=== PATIENT | male | born 1985 | race Caucasian/White ===

== ENCOUNTER → 2024-12-27 08:51 | Outpatient (CLI) | payer OTHER, SELFPAY ==
--- NOTE | 2024-12-27 08:53 | DI.MRI.S_ITS ---
PROCEDURE: MR ANKLE RT WO CON INDICATIONS: INSTABILITY AND PAIN RT ANKLE AND JOINT TECHNIQUE: Noncontrast sagittal T1 spin echo and T2 fast spin echo with fat saturation, axial proton density fast spin echo and T2 fast spin echo with fat saturation, coronal T1 spin echo and T2 fast spin echo with fat saturation through the ankle/hindfoot. COMPARISON: None. FINDINGS: Image quality: Excellent Tendons: Trace tenosynovitis of the posterior tibialis. The flexor digitorum longus is unremarkable. Mild tenosynovitis of the flexor hallucis longus. The extensor tendons are unremarkable. Longitudinal split tear of the peroneal brevis. Mild tendinosis of the peroneal longus, without tear. Mild peritenonitis of the distal Achilles tendon, without tear. No significant tendinosis of the distal Achilles tendon. Ligaments: Thickening of the anterior tibiofibular ligament, representing prior sprain. The posterior tibiofibular ligament is intact. The anterior talofibular ligament is thin, representing prior sprain. The posterior talofibular ligament is intact. The calcaneofibular ligament is intact. Mild sprain of the deep portion deltoid ligament. Sinus tarsi: No fibrosis Plantar fascia: Unremarkable Muscles: Normal in signal. No muscle edema or fatty atrophy. Bones: Normal in signal. No significant tibiotalar or posterior subtalar effusion. IMPRESSION: 1. Longitudinal split tear of the peroneal brevis. 2. Mild peritenonitis of the distal Achilles tendon, without tear. 3. Prior sprain of the medial and lateral ankle ligaments. Dictated by: Yesika Sequeira M.D. on 12/27/2024 at 14:44 Approved by: Yesika Sequeira M.D. on 12/27/2024 at 14:52
== END ==
PROVIDERS: PCP Nurse Practitioner Family; Referring Provider Podiatrist; Visit Provider Podiatrist
DX: S96.811A Strain of other specified muscles and tendons at ankle and foot level, right foot, initial encounter (principal); S93.421A Sprain of deltoid ligament of right ankle, initial encounter; M76.61 Achilles tendinitis, right leg; M25.371 Other instability, right ankle; M25.571 Pain in right ankle and joints of right foot
CPT/HCPCS: 73721

== ENCOUNTER → 2025-01-02 08:11 | Outpatient (CLI) | payer OTHER, SELFPAY ==
--- NOTE | 2025-01-02 08:12 | DI.MRI.S_ITS ---
PROCEDURE: MR SHOULDER LT WO CON INDICATIONS: Pain in lt shoulder TECHNIQUE: Noncontrast oblique coronal T2 fast spin echo with fat saturation, oblique sagittal T1 spin echo and T2 fast spin echo with fat saturation, axial T1 spin echo and T2 fast spin echo with fat saturation through the shoulder. COMPARISON: [facility] Outside Film, MR, MR SHOULDER LEFT WITHOUT CONTRAST, 10/25/2023, 9:42. FINDINGS: Image quality: Excellent. Bones: The bone marrow signal is normal. There is no acute fracture or dislocation. Acromioclavicular joint: Minimal osteoarthritis. There is a type 1 acromion. Glenohumeral joint: There is no significant osteoarthritis. There is no significant joint effusion. Labrum: The labrum is normal. Cartilage: There is no significant articular cartilage defect. Subacromial-subdeltoid bursa: There is a small amount of fluid in the subacromial-subdeltoid bursa. Rotator cuff: There is mild supraspinatus tendinosis. The infraspinatus tendon is intact. The subscapularis tendon is intact. The teres minor tendon is intact. Long head of biceps tendon: The long head of the biceps tendon is present within the bicipital groove and intact. Musculature: Muscle bulk is preserved without evidence of denervation or fatty atrophy. Inferior glenohumeral ligaments/Axillary pouch: The axillary pouch is normal in thickness and signal. Coracoclavicular and coracoacromial ligaments: The coracoclavicular and coracoacromial ligaments are normal. Other: No other acute abnormality. IMPRESSION: 1. Mild supraspinatus tendinosis. 2. Mild subacromial-subdeltoid bursitis. 3. Minimal acromioclavicular osteoarthritis. 4. No other acute MR abnormality of the left shoulder. Dictated by: Trevor Collazo M.D. on 01/03/2025 at 15:38 Approved by: Trevor Collazo M.D. on 01/03/2025 at 15:44
== END ==
PROVIDERS: PCP Nurse Practitioner Family; Referring Provider Student in an Organized Health Care Education/Training Program; Visit Provider Student in an Organized Health Care Education/Training Program
DX: M25.512 Pain in left shoulder (principal); M75.52 Bursitis of left shoulder
CPT/HCPCS: 73221